=== PATIENT | female | born 1945 | race African-American/Black ===

== ENCOUNTER → 2017-06-19 | Outpatient (CLI) | payer MEDICARE, OTHER ==
--- NOTE | 2017-06-19 16:06 | RAD ---
Renal sonography Clinical indications: Renal sufficiency. Hypertension. Findings: The longitudinal and AP and transverse dimensions of the right kidney are 9.9 cm and 5.1 cm and 6.2 cm respectively. The longitudinal AP and transverse dimensions of the left kidney are 10.4 cm and 4.8 cm and 5.6 cm respectively. No hydronephrosis or renal mass or perinephric fluid collection is seen on either side. Urinary bladder is moderately distended with a volume of 214 cc. After voiding, the volume is 0 cc. No intraluminal echodensities or masses are seen. IMPRESSION: No hydronephrosis.
== END | disposition home or self-care (01) ==
LOC: US 12:16
PROVIDERS: ATTEND Internal Medicine Nephrology
DX: M79.604 Pain in right leg (principal); I12.9 Hypertensive chronic kidney disease with stage 1 through stage 4 chronic kidney disease, or unspecified chronic kidney disease; N18.3 Chronic kidney disease, stage 3 (moderate)
CPT/HCPCS: 76770

== ENCOUNTER 2020-08-29 12:26 | Inpatient (IN) | payer MEDICARE, OTHER ==
[~2020-08-29] VITALS: Ht 165.1 cm; Wt 106.0 kg
[2020-08-29 13:30] VITALS: BP 159/72
[2020-08-29 13:57] LABS: BASO # 0.1 x10^3/uL (0.0-0.2); BASO % 1 % (0-3); EOS # 0.5 x10^3/uL (0.0-0.7); EOS % 4 % (0-3); HEMATOCRIT 41.2 % (36.0-47.0); HEMOGLOBIN 12.9 g/dL (12.0-15.5); LYMPH # 2.6 x10^3/uL (1.0-4.8); LYMPH % 22 % (24-48); MEAN CORPUSCULAR HEMOGLOBIN 24 pg (25-35); MEAN CORPUSCULAR HGB CONC 31 g/dL (31-37); MEAN CORPUSCULAR VOLUME 77 fL (79-100); MONO # 0.7 x10^3/uL (0.0-1.1); MONO % 6 % (0-9); NEUT # 7.8 x10^3uL (1.8-7.7); NEUT % 67 % (31-73); PLATELET COUNT 310 x10^3/uL (140-400); RED BLOOD COUNT 5.37 x10^6/uL (3.50-5.40); RED CELL DISTRIBUTION WIDTH 19.1 % (11.5-14.5); WHITE BLOOD COUNT 11.7 x10^3/uL (4.0-11.0)
[2020-08-29 14:04] LABS: ALBUMIN 3.1 g/dL (3.4-5.0); ALBUMIN/GLOBULIN RATIO 0.7 (1.0-1.7); CALCIUM 8.9 mg/dL (8.5-10.1); CREATININE 1.2 mg/dL (0.6-1.0); POTASSIUM 3.5 mmol/L (3.5-5.1); TOTAL BILIRUBIN 0.5 mg/dL (0.2-1.0); TOTAL PROTEIN 7.8 g/dL (6.4-8.2)
[2020-08-29] MEDS ORDERED: AZITHROMYCIN 250 MG TABLET. PO ONE (15:00)
--- NOTE | 2020-08-29 17:37 | EKG ---
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
[2020-08-29 18:24] VITALS: BP 131/69
[2020-08-29] MEDS ORDERED: WARF6TAB47 PO (19:18)
[2020-08-29] MEDS ORDERED: XOPENEX HFA15 GM IH (19:18)
[2020-08-29] MEDS ORDERED: AMLO5TAB4 PO (19:18)
[2020-08-29] MEDS ORDERED: GLIP10TA13 PO (19:18)
[2020-08-29] MEDS ORDERED: POLY15DR27 EACHEYE (19:18)
[2020-08-29] MEDS ORDERED: FERR-36 PO (19:18)
[2020-08-29] MEDS ORDERED: CETI10TA16 PO (19:18)
[2020-08-29] MEDS ORDERED: CYCL-331 PO (19:18)
[2020-08-29] MEDS ORDERED: METO25TA4 PO (19:18)
[2020-08-29] MEDS ORDERED: ACET325T9 PO (19:18)
[2020-08-29] MEDS ORDERED: MONT10TA80 PO (19:18)
[2020-08-29] MEDS ORDERED: HYDR-2868 PO (19:18)
[2020-08-29] MEDS ORDERED: LISI40TA6 PO (19:18)
[2020-08-29] MEDS ORDERED: FURO-69 PO (19:18)
[2020-08-29] MEDS ORDERED: COLC0.6T34 PO (19:18)
[2020-08-29] MEDS ORDERED: METF500T16 PO (19:18)
[2020-08-29] MEDS ORDERED: CRESTOR5 MG PO (19:18)
[2020-08-29] MEDS ORDERED: SPIR25TA5 PO (19:18)
[2020-08-29] MEDS ORDERED: SITA100T PO (19:18)
[2020-08-29] MEDS ORDERED: B CO1TAB10 PO (19:18)
[2020-08-29] MEDS ORDERED: DEXTROSE 50% 25 GM / 50ML DISP.SYRIN. IV PRN (19:30)
[2020-08-29 20:10] VITALS: BP 116/72
[2020-08-29] MEDS ORDERED: ZOLPIDEM 5 MG TABLET. PO PRN (20:15)
[2020-08-29] MEDS ORDERED: ACETAMINOPHEN 500 MG TABLET PO PRN (20:15)
[2020-08-29] MEDS ORDERED: FUROSEMIDE 20 MG TABLET PO PRN (20:15)
[2020-08-29] MEDS ORDERED: ACETAMINOPHEN 325 MG TABLET PO PRN (20:15)
[2020-08-29] MEDS ORDERED: CYCLOBENZAPRINE 10 MG TABLET. PO PRN (20:15)
[2020-08-29] MEDS ORDERED: COLCHICINE 0.6 MG TABLET. PO PRN (20:15)
[2020-08-29] MEDS ORDERED: POLYVINYL ALCOHOL 1.4% OPHTH SOLUTION 15ML BOTTLE. OU PRN (20:15)
[2020-08-29] MEDS: METOPROLOL TART IMMED RELEASE 25 MG TABLET. PO SCH (21:00)
[2020-08-29] MEDS ORDERED: WARFARIN 6 MG TABLET. PO SCH (21:30)
[2020-08-29] MEDS: MONTELUKAST 10 MG TABLET. PO SCH (21:31)
[2020-08-29] MEDS: LACTOBACILLUS RHAMNOSUS GG 1 CAPSULE. PO SCH (21:31)
[2020-08-29] MEDS: ATORVASTATIN CALCIUM 20 MG TABLET PO SCH (21:32)
[2020-08-29] MEDS: IPRATRPIUM/ALBUTEROL 0.5/2.5MG 3 ML NEBU. NEB SCH (21:32)
[2020-08-29] MEDS: metFORMIN 500 MG TABLET PO SCH (21:32)
[2020-08-29 23:10] VITALS: BP 137/84
[2020-08-30] MEDS: IPRATRPIUM/ALBUTEROL 0.5/2.5MG 3 ML NEBU. NEB SCH ×3 (05:14→20:15)
[2020-08-30 05:30] VITALS: BP 116/74
[2020-08-30] MEDS: INSULIN LISPRO 300 UNITS/3 ML VIAL. SQ SCH ×3 (08:00→17:12)
[2020-08-30] MEDS: SPIRONOLACTONE 25 MG TABLET PO SCH (08:51)
[2020-08-30] MEDS: CETIRIZINE HCL 10 MG TABLET PO SCH (08:51)
[2020-08-30] MEDS: methylPREDNISolone SOD SUCC PF 40 MG/ML VIAL. IV SCH (08:52)
[2020-08-30] MEDS: METOPROLOL TART IMMED RELEASE 25 MG TABLET. PO SCH ×2 (08:52→20:16)
[2020-08-30] MEDS: glipiZIDE 5 MG TABLET PO SCH (08:52)
[2020-08-30] MEDS: metFORMIN 500 MG TABLET PO SCH ×2 (08:52→20:18)
[2020-08-30] MEDS: LACTOBACILLUS RHAMNOSUS GG 1 CAPSULE. PO SCH ×2 (08:52→20:16)
[2020-08-30] MEDS: LINAGLIPTIN 5 MG TABLET PO SCH (08:52)
[2020-08-30] MEDS: FERROUS SULFATE 325 MG TABLET. PO SCH (08:52)
[2020-08-30] MEDS: AZITHROMYCIN 250 MG TABLET. PO SCH (08:53)
[2020-08-30] MEDS: LISINOPRIL 20 MG TABLET PO SCH (09:00)
[2020-08-30] MEDS: amLODIPine BESYLATE 5 MG TABLET PO SCH (09:00)
[2020-08-30] MEDS: hydrALAZINE 25 MG TABLET PO SCH (09:00)
[2020-08-30] MEDS ORDERED: DIGOXIN IV 500 MCG/2 ML AMPUL. IV ONE ×2 (09:30)
[2020-08-30] MEDS: ENOXAPARIN ** NOTE DOSE ** SYRINGE SQ SCH ×2 (10:00→20:19)
--- NOTE | 2020-08-30 10:02 | PDOC2 ---
CARDIAC CONSULT DATE OF CONSULT DOS: DATE: 08/30/20 TIME: 09:57 REASON FOR CONSULT Reason for Consult AFIB REFERRING PHYSICIAN Referring Physician Dr. Arriaga SOURCE Source: Chart review, Patient HPI History of Present Illness This is a 74 yo female who presented secondary to shortness of breath. Has a history of AFIB, rate has been variable overnight, which prompted this consult. Patient reports having URI with congestion and cough productive of yellow sputum for the last week. Saw primary care provider and was treated with antibiotic therapy and steroids. Also on OTC Mucinex. No significant improvement in symptoms. The day before yesterday, blew her nose so forcefully that she became dizzy. Decided to go back to see her PCP. Was admitted to the hospital for more aggressive treatment. Was initially sinus teodora with HR in the mid 40's yesterday. Overnight, initially had bursts of PAFIB. Then converted to AFIB with RVR and has remained in AFIB. Rate was uncontrolled this am and Digoxin IV was administered. Reports compliance with low-dose metoprolol. She denies any chest pain, palpitations, dizziness, diaphoresis, or nausea/vomiting. No recent fevers. Was recently referred to cardiology due to AFIB. PAST MEDICAL HISTORY Cardiovascular: AFIB, HTN, hyperipidemia, valve insufficiency (rheumatic fever as a child ) Pulmonary: Other (KUSH) Musculoskeletal: Osteoarthritis Endocrine: Diabetes PAST SURGICAL HISTORY Past Surgical History: Total knee replacement (bilateral ), Hysterectomy FAMILY HISTORY Family History: Cancer, Diabetes, Stroke SOCIAL HISTORY Smoke: Quit ALCOHOL: none Drugs: None Lives: Alone CURRENT MEDICATIONS Current Medications Current Medications Ceftriaxone Sodium 1 gm/ Sodium Chloride 50 ml @ 100 mls/hr Q24H IV Last administered on 08/29/20at 17:19; Start 08/29/20 at 15:00 Azithromycin (Zithromax) 500 mg 1X ONCE PO Last administered on 08/29/20at 17:18; Start 08/29/20 at 15:00; Stop 08/29/20 at 15:01; Status DC Azithromycin (Zithromax) 250 mg DAILY PO Last administered on 08/30/20at 08:53; Start 08/30/20 at 09:00 Lactobacillus Rhamnosus (Culturelle) 1 cap BID PO Last administered on 08/30/20at 08:52; Start 08/29/20 at 21:00 Albuterol/ Ipratropium (Duoneb) 3 ml TID NEB Last administered on 08/30/20at 05:14; Start 08/29/20 at 21:00 Methylprednisolone Sodium Succinate (SOLU-Medrol 40MG VIAL) 40 mg DAILY IV Last administered on 08/30/20at 08:52; Start 08/30/20 at 09:00 Insulin Human Lispro (HumaLOG) 0-9 UNITS TIDWMEALS SQ ; Start 08/30/20 at 08:00 Dextrose (Dextrose 50%-Water Syringe) 12.5 gm PRN Q15MIN PRN IV SEE COMMENTS; Start 08/29/20 at 19:30 Acetaminophen (Tylenol) 650 mg PRN Q6HRS PRN PO MILD PAIN / TEMP > 100.3'F; Start 08/29/20 at 20:15 Amlodipine Besylate (Norvasc) 5 mg DAILY PO ; Start 08/30/20 at 09:00 Cetirizine HCl (ZyrTEC) 10 mg DAILY PO Last administered on 08/30/20at 08:51; Start 08/30/20 at 09:00 Colchicine (Colcrys) 0.6 mg PRN BID PRN PO gout flare; Start 08/29/20 at 20:15 Cyclobenzaprine HCl (Flexeril) 10 mg PRN TID PRN PO MUSCLE SPASMS; Start 08/29/20 at 20:15 Ferrous Sulfate (Feosol) 325 mg DAILY PO Last administered on 08/30/20at 08:52; Start 08/30/20 at 09:00 Furosemide (Lasix) 20 mg PRN DAILY PRN PO swelling; Start 08/29/20 at 20:15 Hydralazine HCl (Apresoline) 25 mg DAILY PO ; Start 08/30/20 at 09:00 Metformin HCl (Glucophage) 500 mg BID PO Last administered on 08/30/20at 08:52; Start 08/29/20 at 21:00 Metoprolol Tartrate (Lopressor) 12.5 mg BID PO Last administered on 08/30/20at 08:52; Start 08/29/20 at 21:00 Montelukast Sodium (Singulair) 10 mg HS PO Last administered on 08/29/20at 21:31; Start 08/29/20 at 21:00 Artificial Tears (Artificial Tears) 1 drop PRN QID PRN OU dry eyes; Start 08/29/20 at 20:15 Spironolactone (Aldactone) 25 mg DAILY PO Last administered on 08/30/20at 08:51; Start 08/30/20 at 09:00 Warfarin Sodium (Coumadin) 6 mg HS PO Last administered on 08/29/20at 21:31; Start 08/29/20 at 21:30; Stop 08/30/20 at 09:44; Status DC Glipizide (Glucotrol) 10 mg DAILY PO Last administered on 08/30/20at 08:52; Start 08/30/20 at 09:00 Lisinopril (Prinivil) 40 mg DAILY PO ; Start 08/30/20 at 09:00 Atorvastatin Calcium (Lipitor) 20 mg QHS PO Last administered on 08/29/20at 21:32; Start 08/29/20 at 21:00 Linagliptin (Tradjenta) 5 mg DAILY PO Last administered on 08/30/20at 08:52; Start 08/30/20 at 09:00 Zolpidem Tartrate (Ambien) 5 mg PRN QHS PRN PO INSOMNIA, MAY REPEAT IN 1HR; Start 08/29/20 at 20:15 Acetaminophen (Tylenol) 500 mg PRN Q6HRS PRN PO MILD PAIN / TEMP > 100.3'F; Start 08/29/20 at 20:15; Status UNV Digoxin (Lanoxin) 500 mcg 1X ONCE IV Last administered on 08/30/20at 09:45; Start 08/30/20 at 09:30; Stop 08/30/20 at 09:31; Status DC Digoxin (Lanoxin) 500 mcg 1X ONCE IV ; Start 08/30/20 at 09:30; Stop 08/30/20 at 09:32; Status DC Warfarin Sodium (Coumadin Per Pharmacy) 1 each PRN DAILY PRN MC SEE COMMENTS Last administered on 08/30/20at 09:52; Start 08/30/20 at 09:30 Enoxaparin Sodium (Lovenox 100mg Syringe) 100 mg Q12HR SQ ; Start 08/30/20 at 10:00 Warfarin Sodium (Coumadin) 6 mg 1X WARF ONCE PO ; Start 08/30/20 at 16:00; Stop 08/30/20 at 16:01 Active Scripts Active Reported Montelukast Sodium Tablet (Montelukast Sodium) 10 Mg Tablet 10 Mg PO HS Super B Complex-Vitamin C (B Complex With Vitamin C) 1 Each Tablet 1 Each PO DAILY Iron (Ferrous Sulfate) 325 Mg Tablet 325 Mg PO DAILY Hydralazine Hcl 25 Mg Tablet 25 Mg PO DAILY Colcrys (Colchicine) 0.6 Mg Tablet 0.6 Mg PO PRN BID PRN Crestor (Rosuvastatin Calcium) 5 Mg Tablet 5 Mg PO HS Metoprolol Tartrate 25 Mg Tablet 0.5 Tab PO BID Warfarin Sodium 6 Mg Tablet 6 Mg PO HS Glipizide 10 Mg Tablet 10 Mg PO DAILY Tylenol (Acetaminophen) 325 Mg Tablet 650 Mg PO PRN Q6HRS PRN Lasix (Furosemide) 20 Mg Tablet 20 Mg PO DAILY PRN Januvia (Sitagliptin Phosphate) 100 Mg Tablet 100 Mg PO DAILY Artificial Tears (Polyvinyl Alcohol) 15 Ml Drops 1 Drop EACHEYE QID PRN 20 Days Lisinopril 40 Mg Tablet 40 Mg PO DAILY Spironolactone 25 Mg Tablet 25 Mg PO DAILY Norvasc (Amlodipine Besylate) 5 Mg Tablet 5 Mg PO DAILY Xopenex Hfa (Levalbuterol Tartrate) 15 Gm Hfa.aer.ad 2 Puff IH PRN Q4-6HRS PRN Cetirizine Hcl 10 Mg Tablet 10 Mg PO DAILY Metformin Hcl 500 Mg Tablet 500 Mg PO BID Cyclobenzaprine Hcl 10 Mg Tablet 1 Tab PO TID PRN ALLERGIES Allergies: Coded Allergies: Sulfa (Sulfonamide Antibiotics) (Verified Allergy, Intermediate, 07/10/17) ROS Review of Systems 14 point ROS conducted with pertinent positives noted above in HPI PHYSICAL EXAM General: Alert, Oriented X3, Cooperative, No acute distress HEENT: Atraumatic Lungs: Clear to auscultation Heart: Other (IRRR; tele AFIB- rate controlled ) Abdomen: Soft, No tenderness Extremities: No edema, Normal pulses Skin: No breakdown Neuro: Normal speech, Sensation intact Psych/Mental Status: Mental status NL, Mood NL MUSCULOSKELETAL: Osteoarthritic changes both hands VITALS Vital Signs Vital Signs Date Time Temp Pulse Resp B/P (MAP) Pulse Ox O2 Delivery O2 Flow Rate FiO2 08/30/20 09:45 102 138/90 08/30/20 08:00 Room Air 5/19/21 05:30 98.0 18 95 LABS LABS Laboratory Tests Test 08/29/20 13:33 08/29/20 15:44 08/29/20 20:11 08/30/20 05:40 White Blood Count 11.7 x10^3/uL (4.0-11.0) Red Blood Count 5.37 x10^6/uL (3.50-5.40) Hemoglobin 12.9 g/dL (12.0-15.5) Hematocrit 41.2 % (36.0-47.0) Mean Corpuscular Volume 77 fL (79-100) Mean Corpuscular Hemoglobin 24 pg (25-35) Mean Corpuscular Hemoglobin Concent 31 g/dL (31-37) Red Cell Distribution Width 19.1 % (11.5-14.5) Platelet Count 310 x10^3/uL (140-400) Neutrophils (%) (Auto) 67 % (31-73) Lymphocytes (%) (Auto) 22 % (24-48) Monocytes (%) (Auto) 6 % (0-9) Eosinophils (%) (Auto) 4 % (0-3) Basophils (%) (Auto) 1 % (0-3) Neutrophils # (Auto) 7.8 x10^3uL (1.8-7.7) Lymphocytes # (Auto) 2.6 x10^3/uL (1.0-4.8) Monocytes # (Auto) 0.7 x10^3/uL (0.0-1.1) Eosinophils # (Auto) 0.5 x10^3/uL (0.0-0.7) Basophils # (Auto) 0.1 x10^3/uL (0.0-0.2) Sodium Level 141 mmol/L (136-145) Potassium Level 3.5 mmol/L (3.5-5.1) Chloride Level 105 mmol/L (98-107) Carbon Dioxide Level 27 mmol/L (21-32) Anion Gap 9 (6-14) Blood Urea Nitrogen 25 mg/dL (7-20) Creatinine 1.2 mg/dL (0.6-1.0) Estimated GFR (Cockcroft-Gault) 53.0 BUN/Creatinine Ratio 21 (6-20) Glucose Level 170 mg/dL (70-99) Calcium Level 8.9 mg/dL (8.5-10.1) Total Bilirubin 0.5 mg/dL (0.2-1.0) Aspartate Amino Transf (AST/SGOT) 20 U/L (15-37) Alanine Aminotransferase (ALT/SGPT) 33 U/L (14-59) Alkaline Phosphatase 66 U/L (46-116) Total Protein 7.8 g/dL (6.4-8.2) Albumin 3.1 g/dL (3.4-5.0) Albumin/Globulin Ratio 0.7 (1.0-1.7) Prothrombin Time 16.4 SEC (9.4-11.4) 15.7 SEC (9.4-11.4) Prothromb Time International Ratio 1.6 (0.9-1.1) 1.5 (0.9-1.1) D-Dimer (Alyssa) 0.47 mg/L (0.00-0.50) Creatine Kinase 85 U/L (26-192) Troponin I Quantitative < 0.017 ng/mL (0-0.055) Glucose (Fingerstick) 205 mg/dL (70-99) Test 08/30/20 07:23 Glucose (Fingerstick) 184 mg/dL (70-99) ECHOCARDIOGRAM Echocardiogram 07/07/20 - 2D + DOPPLER ECHO Normal left ventricular systolic function with an EF of 60%. No regional wall motion abnormalities. Moderate diastolic dysfunction. Elevated l left atrial pressure. Normal right ventricular size and function. Mitral annular calcification with nonspecific mitral valve thickening. Mild Mild TR. Aortic valve is sclerotic, there is a mild gradient across the aortic valve. The peak velocity was 2.7 m/s, the peak gradient was 28 mmHg, the mean gradient was 16 mmHg. The aortic valve velocity ratio 0.40. Visually the gradients are a little higher than expected given the appearance of the valve, though I did not appreciate any changes in the LVOT to suggest membrane. Overall there is probably mild aortic valve stenosis. There is trace AI. Peak PAP of 44 mmHg. The IVC is consistent with a normal central venous pressure. Aortic root was at the upper end of normal for age and body surface area. No pericardial effusion. ASSESSMENT/PLAN Assessment/Plan 1. URI, bronchitis 2. PAFIB with intermittent RVR; rate controlled s/p IV Dig 3. Sinus bradycardia, ? tachybrady; HR in mid 40's yesterday. no significant pauses 4. Chronic OAC wtih warfarin. INR 1.5 5. Hypertension; controlled 6. Hyperlipidemia 7. Diabetes, II 8. KUSH Recommendations TSH Mg level Continue metoprolol for rate control; unable to uptitrate due to sinus bradycardia with resting HR in mid 40's yesterday Consider addition of Amiodarone for rhythm maintenance Will need event monitor upon discharge to guide therapy, assess need for PPM Continue warfarin for stroke prophylaxis. Bridging with Lovenox until INR therapeutic Supportive care MARIZA GLASS APRN August 30, 2020 10:02
[2020-08-30 10:42] VITALS: BP 120/82
--- NOTE | 2020-08-30 12:13 | RAD ---
EXAM: Chest CT without intravenous contrast. HISTORY: Shortness of air. TECHNIQUE: Computed tomographic images of the chest were obtained without contrast. Multiplanar refor matting was performed. *One or more of the following individualized dose reduction techniques were utilized for this examina tion: 1. Automated exposure control. 2. Adjustment of the mA and/or kV according to patient size. 3. Use of iterative reconstruction technique. COMPARISON: None. FINDINGS: The heart is normal in size. The aorta is normal in caliber. There are calcified mediastina l and right hilar granulomas. No pathologically enlarged noncalcified lymph node is seen. There is no pneumothorax or pleural effusion. There are few tiny groundglass nodular opacities clustered within the posterior right upper lobe measuring up to 3 mm. There is also nonspecific groundglass opacity wi thin the medial bilateral lower lobes. There is no acute finding involving the upper abdomen. There a re degenerative changes throughout the visualized spine. There is no acute or suspicious osseous lesi on. IMPRESSION: Tiny clustered groundglass nodular opacities within the right upper lobe, likely infecti ous or inflammatory in etiology. There is also suspected groundglass infiltrate within the bilateral medial lower lobes. Correlate for atypical pneumonia/pneumonitis. There is no consolidation. Electronically signed by: Charlette Castellanos MD (08/30/2020 12:10 PM) [id number]
--- NOTE | 2020-08-30 12:19 | EKG ---
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
[2020-08-30 14:51] VITALS: BP 129/76
[2020-08-30] MEDS ORDERED: WARFARIN 6 MG TABLET. PO ONE (16:00)
[2020-08-30 18:30] VITALS: BP 130/84
[2020-08-30] MEDS: MONTELUKAST 10 MG TABLET. PO SCH (20:15)
[2020-08-30] MEDS: ATORVASTATIN CALCIUM 20 MG TABLET PO SCH (20:16)
[2020-08-30 23:10] VITALS: BP 135/81
--- NOTE | 2020-08-31 01:00 | PN ---
SUBJECTIVE: A 74-year-old female admitted yesterday with acute exacerbation of asthma, probable bronchitis. The patient also has a history of atrial fibrillation on chronic coumadinization and warfarin. The patient's chest x-ray in the office was basically unremarkable, although CT scan has been ordered here. The patient also had runs of AFib up to 150 beats per minute, RVR (NC). The patient this morning is down to 120s, I will give her a dose of Lanoxin 500 mcg IV one time, a followup with 250 mcg in 6 hours as needed. Cardiology has been consulted. She denies any chest pain or shortness of breath. Says she feels somewhat better, but she is still very diaphoretic when just sitting there in the chair. The patient's oxygen saturation seems to be stable at 95% on room air. OBJECTIVE: VITAL SIGNS: Blood pressure 138/90, respiratory rate 18-20 and pulse anywhere from 102-120, irregular. GENERAL: The patient otherwise is alert and oriented, very pleasant lady. LUNGS: Diminished. Some expiratory wheezes were noted, improved from yesterday. CARDIOVASCULAR: Irregularly irregular rhythm. Possible 1/6 systolic ejection murmur. ABDOMEN: The patient also is quite clammy. EXTREMITIES: No clubbing, cyanosis or edema. NEUROLOGIC: The patient is alert, oriented. Speech fluent, spontaneous, and appropriate. LABORATORY DATA: The patient's white count 11. The patient did have a decrease in her MCV, but carries with her sickle cell trait. The patient's BUN and creatinine 25 and 1.2. Sodium and potassium 140 and 3.5. Blood sugars are being monitored given one low dose of Solu-Medrol daily. Cardiac enzymes so far have been unremarkable. EKG to be repeated this morning because of this diaphoresis and make comparisons obviously. ASSESSMENT: Atrial fibrillation with rapid ventricular response, acute exacerbation of asthma with acute bronchitis, hypocoagulable state, type 2 diabetes, moderate protein malnutrition, sickle cell trait. PLAN: The patient will continued to be monitored carefully. Make further evaluation on her as indicated. MILVIA/JAIME/SONYA DR: Tobin TID: [id number]
[2020-08-31] MEDS: IPRATRPIUM/ALBUTEROL 0.5/2.5MG 3 ML NEBU. NEB SCH ×2 (05:12→09:34)
[2020-08-31 07:58] VITALS: BP 130/84
[2020-08-31] MEDS: INSULIN LISPRO 300 UNITS/3 ML VIAL. SQ SCH (08:22)
[2020-08-31] MEDS: CETIRIZINE HCL 10 MG TABLET PO SCH (08:25)
[2020-08-31] MEDS: metFORMIN 500 MG TABLET PO SCH (08:25)
[2020-08-31] MEDS: FERROUS SULFATE 325 MG TABLET. PO SCH (08:26)
[2020-08-31] MEDS: LACTOBACILLUS RHAMNOSUS GG 1 CAPSULE. PO SCH (08:26)
[2020-08-31] MEDS: amLODIPine BESYLATE 5 MG TABLET PO SCH (08:26)
[2020-08-31] MEDS: AZITHROMYCIN 250 MG TABLET. PO SCH (08:26)
[2020-08-31] MEDS: glipiZIDE 5 MG TABLET PO SCH (08:26)
[2020-08-31] MEDS: LISINOPRIL 20 MG TABLET PO SCH (08:27)
[2020-08-31] MEDS: LINAGLIPTIN 5 MG TABLET PO SCH (08:27)
[2020-08-31] MEDS: hydrALAZINE 25 MG TABLET PO SCH (08:27)
[2020-08-31 08:28] VITALS: BP 130/84
[2020-08-31] MEDS: SPIRONOLACTONE 25 MG TABLET PO SCH (08:28)
[2020-08-31] MEDS: METOPROLOL TART IMMED RELEASE 25 MG TABLET. PO SCH (08:28)
[2020-08-31] MEDS: methylPREDNISolone SOD SUCC PF 40 MG/ML VIAL. IV SCH (08:28)
[2020-08-31] MEDS: ENOXAPARIN ** NOTE DOSE ** SYRINGE SQ SCH (08:29)
--- NOTE | 2020-08-31 09:10 | PDOC ---
CARDIO Progress Notes Date & Time Date of Service DATE: 08/31/20 TIME: 09:10 Time of Evaluation 09:10 Subjective Notes Feeling well. No chest pain, palpitations, dizziness. Vitals Vitals Vital Signs Date Time Temp Pulse Resp B/P (MAP) Pulse Ox O2 Delivery O2 Flow Rate FiO2 08/31/20 08:30 Room Air 08/31/20 08:28 75 130/84 08/31/20 07:58 97.7 15 98 Weight Weight [ ] Input and Output I.O. Intake and Output 08/31/20 07:00 Intake Total 1320 ml Output Total 200 ml Balance 1120 ml Intake Oral 1320 ml Output Urine Total 200 ml # Voids 7 # Bowel Movements 1 Laboratory Labs Laboratory Tests Test 08/29/20 13:33 08/29/20 15:44 08/29/20 20:11 08/30/20 05:40 White Blood Count 11.7 x10^3/uL (4.0-11.0) Red Blood Count 5.37 x10^6/uL (3.50-5.40) Hemoglobin 12.9 g/dL (12.0-15.5) Hematocrit 41.2 % (36.0-47.0) Mean Corpuscular Volume 77 fL (79-100) Mean Corpuscular Hemoglobin 24 pg (25-35) Mean Corpuscular Hemoglobin Concent 31 g/dL (31-37) Red Cell Distribution Width 19.1 % (11.5-14.5) Platelet Count 310 x10^3/uL (140-400) Neutrophils (%) (Auto) 67 % (31-73) Lymphocytes (%) (Auto) 22 % (24-48) Monocytes (%) (Auto) 6 % (0-9) Eosinophils (%) (Auto) 4 % (0-3) Basophils (%) (Auto) 1 % (0-3) Neutrophils # (Auto) 7.8 x10^3uL (1.8-7.7) Lymphocytes # (Auto) 2.6 x10^3/uL (1.0-4.8) Monocytes # (Auto) 0.7 x10^3/uL (0.0-1.1) Eosinophils # (Auto) 0.5 x10^3/uL (0.0-0.7) Basophils # (Auto) 0.1 x10^3/uL (0.0-0.2) Sodium Level 141 mmol/L (136-145) Potassium Level 3.5 mmol/L (3.5-5.1) Chloride Level 105 mmol/L (98-107) Carbon Dioxide Level 27 mmol/L (21-32) Anion Gap 9 (6-14) Blood Urea Nitrogen 25 mg/dL (7-20) Creatinine 1.2 mg/dL (0.6-1.0) Estimated GFR (Cockcroft-Gault) 53.0 BUN/Creatinine Ratio 21 (6-20) Glucose Level 170 mg/dL (70-99) Calcium Level 8.9 mg/dL (8.5-10.1) Total Bilirubin 0.5 mg/dL (0.2-1.0) Aspartate Amino Transf (AST/SGOT) 20 U/L (15-37) Alanine Aminotransferase (ALT/SGPT) 33 U/L (14-59) Alkaline Phosphatase 66 U/L (46-116) Total Protein 7.8 g/dL (6.4-8.2) Albumin 3.1 g/dL (3.4-5.0) Albumin/Globulin Ratio 0.7 (1.0-1.7) Prothrombin Time 16.4 SEC (9.4-11.4) 15.7 SEC (9.4-11.4) Prothromb Time International Ratio 1.6 (0.9-1.1) 1.5 (0.9-1.1) D-Dimer (Alyssa) 0.47 mg/L (0.00-0.50) Creatine Kinase 85 U/L (26-192) 61 U/L (26-192) Troponin I Quantitative < 0.017 ng/mL (0-0.055) < 0.017 ng/mL (0-0.055) Glucose (Fingerstick) 205 mg/dL (70-99) Magnesium Level 1.9 mg/dL (1.8-2.4) JF-[id number]-G-Type Natriuretic Peptide 196 pg/mL (0-449) Triglycerides Level 148 mg/dL (0-150) Cholesterol Level 165 mg/dL (0-200) LDL Cholesterol, Calculated 103 mg/dL (0-100) VLDL Cholesterol, Calculated 29 mg/dL (0-40) Non-HDL Cholesterol Calculated 132 mg/dL (0-129) HDL Cholesterol 33 mg/dL (40-60) Cholesterol/HDL Ratio 5.0 Thyroid Stimulating Hormone (TSH) 1.995 uIU/mL (0.358-3.740) Test 08/30/20 07:23 08/30/20 11:31 08/30/20 16:17 08/30/20 20:40 Glucose (Fingerstick) 184 mg/dL (70-99) 170 mg/dL (70-99) 312 mg/dL (70-99) 217 mg/dL (70-99) Test 08/31/20 07:05 Prothrombin Time 16.9 SEC (9.4-11.4) Prothromb Time International Ratio 1.7 (0.9-1.1) Physical Exams HEENT: Neck Supple W Full Motion Chest: Symmetric Lungs: Clear to Auscultation Heart: other (tele shows SR with intermittent AFIB) Abdomen: Soft N/T Extremities: No Edema Neurology: alert, oriented, follow commands Assessment Assessment 1. URI, bronchitis 2. PAFIB with intermittent RVR; presently SR, but intermittent AFIB noted. Brief periods of RVR noted, but rate mostly controlled 3. Sinus bradycardia, ? tachybrady; HR in mid 40's upon arrival. no significant pauses 4. Chronic OAC wtih warfarin. INR 1.7 5. Hypertension; controlled 6. Hyperlipidemia 7. Diabetes, II 8. KUSH Recommendations Continue metoprolol for rate control; unable to uptitrate due to sinus claudette ycardia with resting HR in mid 40's upon arrival Discussed addition of Amiodarone for rhythm maintenance as she continues to have paroxysms of AFIB. Patient would like to recovery from illness and have event monitor conducted prior to initiating antiarrhythmic therapy Given option of having event monitor conducted through [facility], as she has been seen there prior, or having conducted through our office with follow up. Patient would like to have conducted through [facility]. Will arrange along with followup in [facility]. Continue warfarin for stroke prophylaxis. Supportive care MARIZA GLASS APRN August 31, 2020 09:10
[2020-08-31] MEDS ORDERED: WARFARIN 2.5 MG TABLET. PO ONE (16:00)
[2020-08-31] MEDS ORDERED: WARFARIN 4 MG TABLET. PO ONE (16:00)
--- NOTE | 2020-09-07 13:16 | DS ---
DATE OF DISCHARGE: 08/31/2020 HOSPITAL COURSE: The patient is a 74-year-old female who came in with acute asthma, bronchitis, has history of atrial fibrillation, initially seen in the office with a rapid ventricular rate of AFib up to 150 beats per minute. She was given Lanoxin 500 mcg 1 time followed by 250 mcg every 6 hours as needed. Cardiology has been consulted. They reviewed with the patient and made timely suggestions. Otherwise, the patient's atrial fibrillation was brought under good control. Her acute exacerbation of her asthma and bronchitis was treated accordingly. Chest x-ray showed some ground glass nodular opacities within the right upper lobe, probably infectious. She was treated for such without any complications. The patient made good progress during the rest of her hospitalization and was discharged. IMPRESSION: Therefore, atrial fibrillation with rapid ventricular response, acute exacerbation of asthma as well as acute bronchitis, essential hypertension, hyperlipidemia, type 2 diabetes. The patient otherwise will be monitored as an outpatient. See [facility]AD and make further assessment on her as an outpatient. MILVIA/LASHANDA/YVES DR: Tobin TID: [id number]
== END 2020-08-31 10:41 | disposition home or self-care (01) | DRG 178 ==
LOC: 1 SOUTH 12:26
PROVIDERS: ADMIT Family Medicine; ATTEND Family Medicine
DX: J15.6 Pneumonia due to other Gram-negative bacteria (principal); J45.901 Unspecified asthma with (acute) exacerbation; E44.0 Moderate protein-calorie malnutrition; J15.9 Unspecified bacterial pneumonia; I48.0 Paroxysmal atrial fibrillation; J20.9 Acute bronchitis, unspecified; Z79.01 Long term (current) use of anticoagulants; I10 Essential (primary) hypertension; Z88.2 Allergy status to sulfonamides; Z79.899 Other long term (current) drug therapy; E78.5 Hyperlipidemia, unspecified; E11.9 Type 2 diabetes mellitus without complications; I49.5 Sick sinus syndrome; J06.9 Acute upper respiratory infection, unspecified; G47.33 Obstructive sleep apnea (adult) (pediatric); Z82.3 Family history of stroke; Z86.19 Personal history of other infectious and parasitic diseases; Z90.710 Acquired absence of both cervix and uterus; Z96.653 Presence of artificial knee joint, bilateral; Z83.3 Family history of diabetes mellitus; D57.3 Sickle-cell trait; Z68.38 Body mass index [BMI] 38.0-38.9, adult
CPT/HCPCS: 36415; 71250; 80053; 80061; 82550; 82947; 83735; 83880; 84443; 84484; 85025; 85379; 85610; 93005; 94640; J0696; J1160; J1650; J1815; J2920